=== PATIENT | female | born 1975 | race Hispanic/Latino ===

== ENCOUNTER 2019-04-03 23:23 | Observation (INO) | payer MEDICAID ==
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
[2019-04-04 00:20] LABS: BASO # 0.05 K/mm3 (0.0-2.0); BASO % 0.3 % (0.0-3.0); EOS # 0.1 (0.0-0.7); EOS % 0.3 % (1.5-5.0); HEMOGLOBIN 12.7 g/dL (12.0-16.0); LYMPH # 2.5 (1.2-3.4); LYMPH % 14.2 % (22.0-35.0); MEAN CORPUSCULAR HEMOGLOBIN 29.5 pg (25.0-35.0); MEAN CORPUSCULAR HGB CONC 32.7 g/dl (31.0-37.0); MEAN PLATELET VOLUME 9.8 fl (7.0-11.0); MONO # 0.9 (0.1-0.6); MONO % 4.9 % (1.0-6.0); RBC 4.31 10^6/uL (3.5-6.1); RED CELL DISTRIBUTION WIDTH 13.5 % (11.5-14.5); WHITE BLOOD COUNT 17.8 10^3/uL (4.5-11.0)
[2019-04-04 00:21] LABS: URINE BILIRUBIN NEGATIVE (NEGATIVE); URINE BLOOD NEGATIVE (NEGATIVE); URINE GLUCOSE (UA) NEGATIVE (NEGATIVE); URINE LEUKOCYTE ESTERASE NEGATIVE Leu/uL (NEGATIVE); URINE PROTEIN TRACE mg/dL (<30 mg/dL); URINE UROBILINOGEN 0.2 E.U./dL (<1 E.U./dL)
[2019-04-04 00:27] LABS: URINE APPEARANCE CLEAR (CLEAR); URINE COLOR LIGHT YELLOW (YELLOW)
[2019-04-04 00:33] LABS: ALB/GLOB RATIO 1.4 (1.1-1.8); ALBUMIN 4.4 g/dL (3.0-4.8); ALT/SGPT 30 U/L (7-56); AST/SGOT 38 U/L (14-36); BLOOD UREA NITROGEN 13 mg/dL (7-21); CALCIUM 8.8 mg/dL (8.4-10.5); GFR NON-AFRICAN AMERICAN > 60
[2019-04-04 00:39] LABS: HCG,QUALITATIVE URINE NEGATIVE (NEGATIVE); URINE BACTERIA FEW /hpf; URINE RBC 0 - 2 /hpf (0-2); URINE WBC 0 - 2 /hpf (0-6)
[2019-04-04] MEDS ORDERED: Sodium Chloride 0.9% 1,000 ML IV ONE (01:01)
[2019-04-04 01:09] LABS: BARBITURATES, UR NEGATIVE (NEGATIVE); BENZODIAZEPINES, UR NEGATIVE (NEGATIVE); OPIATES, UR NEGATIVE (NEGATIVE); PHENCYCLIDINE, UR NEGATIVE (NEGATIVE)
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
[2019-04-04] MEDS: Sodium Chloride 0.45% 1,000 ML IV SCH ×2 (04:16→18:36)
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
[2019-04-04] MEDS: Multivitamin With Minerals Tab PO SCH (10:24)
--- NOTE | 2019-04-04 10:27 | RAD ---
Date of service: 04/04/2019 PROCEDURE: Right Wrist Radiographs. HISTORY: wrist pain COMPARISON: None. TECHNIQUE: 4 views obtained. FINDINGS: BONES: Normal. No fracture. JOINTS: Normal. No dislocation. SOFT TISSUES: Normal. OTHER FINDINGS: None. IMPRESSION: Normal right wrist radiographs.
--- NOTE | 2019-04-04 10:28 | RAD ---
PROCEDURE: Right Hand Radiographs. HISTORY: hand pain COMPARISON: None. TECHNIQUE: 3 views obtained. FINDINGS: BONES: Normal. No fracture. JOINTS: Normal. No osteoarthritic changes. SOFT TISSUES: Normal. OTHER FINDINGS: None. IMPRESSION: Normal right hand radiographs.
[2019-04-04 12:04] LABS: BASO # 0.04 K/mm3 (0.0-2.0); BASO % 0.3 % (0.0-3.0); EOS # 0.1 (0.0-0.7); EOS % 0.6 % (1.5-5.0); HEMOGLOBIN 11.5 g/dL (12.0-16.0); LYMPH % 24.8 % (22.0-35.0); MEAN CELL VOLUME 89.3 fl (80.0-105.0); MEAN CORPUSCULAR HEMOGLOBIN 29.3 pg (25.0-35.0); MEAN CORPUSCULAR HGB CONC 32.9 g/dl (31.0-37.0); MEAN PLATELET VOLUME 9.8 fl (7.0-11.0); MONO # 0.9 (0.1-0.6); MONO % 7.1 % (1.0-6.0); RBC 3.92 10^6/uL (3.5-6.1); RED CELL DISTRIBUTION WIDTH 13.8 % (11.5-14.5); WHITE BLOOD COUNT 12.2 10^3/uL (4.5-11.0)
[2019-04-04 12:11] LABS: ALB/GLOB RATIO 1.4 (1.1-1.8); ALBUMIN 3.7 g/dL (3.0-4.8); ALT/SGPT 24 U/L (7-56); AST/SGOT 36 U/L (14-36); BLOOD UREA NITROGEN 16 mg/dL (7-21); GFR NON-AFRICAN AMERICAN > 60
--- NOTE | 2019-04-04 15:27 | CT ---
Date of service: 04/04/2019 PROCEDURE: CT HEAD WITHOUT CONTRAST. HISTORY: r/o head trauma COMPARISON: None available. TECHNIQUE: Axial computed tomography images were obtained through the head/brain without intravenous contrast. Radiation dose: Total exam DLP = 742.86 mGy-cm. This CT exam was performed using one or more of the following dose reduction techniques: Automated exposure control, adjustment of the mA and/or kV according to patient size, and/or use of iterative reconstruction technique. FINDINGS: HEMORRHAGE: No intracranial hemorrhage. BRAIN: No mass effect or edema. No atrophy or chronic microvascular ischemic changes. VENTRICLES: Unremarkable. No hydrocephalus. CALVARIUM: Unremarkable. PARANASAL SINUSES: Unremarkable as visualized. No significant inflammatory changes. MASTOID AIR CELLS: Unremarkable as visualized. No inflammatory changes. OTHER FINDINGS: None. IMPRESSION: Normal CT of the Head.
--- NOTE | 2019-04-04 15:33 | MRI ---
Date of service: 04/04/2019 PROCEDURE: MRI BRAIN WITHOUT CONTRAST HISTORY: possible seizure COMPARISON: None available. TECHNIQUE: Multiplanar, multisequence MR images of the brain were obtained without intravenous contrast enhancement. FINDINGS: HEMORRHAGE: None DWI: No evidence of an acute or early subacute infarction. BRAIN PARENCHYMA: No mass effect or edema. No atrophy or chronic microvascular ischemic changes. VENTRICLES: Unremarkable. No hydrocephalus. CRANIUM: Unremarkable. ORBITS: Grossly unremarkable. PARANASAL SINUSES/MASTOIDS: Clear VASCULAR SYSTEM: Skull base flow voids intact. OTHER FINDINGS: None. IMPRESSION: Unremarkable non contrast enhanced MRI of the brain.
--- NOTE | 2019-04-04 18:16 | CARD ---
APPROVED REPORT Date of service: 04/04/2019 EKG Measurement Heart [id number] <Conclusion> Normal sinus rhythm Normal ECG
[2019-04-05 06:43] LABS: BASO # 0.03 K/mm3 (0.0-2.0); BASO % 0.3 % (0.0-3.0); EOS # 0.2 (0.0-0.7); EOS % 1.8 % (1.5-5.0); HEMOGLOBIN 11.1 g/dL (12.0-16.0); LYMPH # 2.8 (1.2-3.4); LYMPH % 32.3 % (22.0-35.0); MEAN CELL VOLUME 89.6 fl (80.0-105.0); MEAN CORPUSCULAR HEMOGLOBIN 28.9 pg (25.0-35.0); MEAN CORPUSCULAR HGB CONC 32.3 g/dl (31.0-37.0); MEAN PLATELET VOLUME 10.1 fl (7.0-11.0); MONO # 0.5 (0.1-0.6); MONO % 6.1 % (1.0-6.0); RBC 3.84 10^6/uL (3.5-6.1); RED CELL DISTRIBUTION WIDTH 13.7 % (11.5-14.5); WHITE BLOOD COUNT 8.7 10^3/uL (4.5-11.0)
[2019-04-05 07:00] LABS: ALB/GLOB RATIO 1.3 (1.1-1.8); ALBUMIN 3.3 g/dL (3.0-4.8); ALT/SGPT 24 U/L (7-56); AST/SGOT 35 U/L (14-36); BLOOD UREA NITROGEN 18 mg/dL (7-21); CALCIUM 7.7 mg/dL (8.4-10.5); GFR NON-AFRICAN AMERICAN > 60
[2019-04-05] MEDS: Multivitamin With Minerals Tab PO SCH (10:36)
[2019-04-05] MEDS: Sodium Chloride 0.45% 1,000 ML IV SCH (10:38)
[2019-04-05 14:06] VITALS: RESP 20; O2SAT 98
--- NOTE | 2019-04-05 16:00 | PCM.EEG ---
Electroencephalogram Report - Electroencephalogram Report Procedure Date: 04/04/19 Medication: Folic acid. Ketorolac Interpretation: Technical Information: This was a 16 -channel EEG, 1-channel EKG routine EEG performed using an Crystal IS machine. Electrodes were applied using the 10/20 international placement system. Start; 13;02 End; ;47 Total 45 min. Clinical Information: seizures During resting wakefulness there was a symmetric posterior dominant rhythm at 8.5-9.5 Hz, 30-50 uV, which was reactive to eye opening and closing. Drowsiness (13;22) was associated with fragmentation of the posterior dominant rhythm and with slow roving eye movements. Light sleep (13;30)was recorded and was characterized by central vertex waves, sleep spindles, and bilateral theta slowing. Hyperventilation was t performed and there were no changes on the record. Photic stimulation was performed and there was symmetric bi occipital diving at different flash frequencies. Focal abnormality; none ECG was associated with a normal sinus rhythm. Impression: This is a normal awake drowsy and sleep electroencephalogram.
--- NOTE | 2019-04-05 17:29 | CP.PCM.DIS ---
<NenajuleeJodie - Last Filed: 04/05/19 17:22> Provider - Provider Date of Admission: 04/04/19 03:46 Attending physician: Demond Garcia MD Consults: 04/04/19 04:01 Neurology Consult Routine Comment: Consulting Provider: Bart Pittman Consulting Physician: Bart Pittman Reason for Consult: syncope, hx seizures 04/04/19 04:05 [employer] Cell [employer]r [Case Management Referral] Routine Comment: Physician Instructions: Reason For Exam: Reason for Referral: Discharge Planning Time Spent in preparation of Discharge (in minutes): 60 Hospital Course - Lab Results Lab Results: Most Recent Lab Values WBC 8.7 10^3/uL (4.5-11.0) D 04/05/19 06:30 RBC 3.84 10^6/uL (3.5-6.1) 04/05/19 06:30 Hgb 11.1 g/dL (12.0-16.0) L 04/05/19 06:30 Hct 34.4 % (36.0-48.0) L 04/05/19 06:30 MCV 89.6 fl (80.0-105.0) 04/05/19 06:30 MCH 28.9 pg (25.0-35.0) 04/05/19 06:30 MCHC 32.3 g/dl (31.0-37.0) 04/05/19 06:30 RDW 13.7 % (11.5-14.5) 04/05/19 06:30 Plt Count 223 10^3/uL (120.0-450.0) 04/05/19 06:30 MPV 10.1 fl (7.0-11.0) 04/05/19 06:30 Neut % (Auto) 59.5 % (50.0-68.0) 04/05/19 06:30 Lymph % (Auto) 32.3 % (22.0-35.0) 04/05/19 06:30 [place] % (Auto) 6.1 % (1.0-6.0) H 04/05/19 06:30 Eos % (Auto) 1.8 % (1.5-5.0) 04/05/19 06:30 Baso % (Auto) 0.3 % (0.0-3.0) 04/05/19 06:30 Lymph # (Auto) 2.8 (1.2-3.4) 04/05/19 06:30 [place] # (Auto) 0.5 (0.1-0.6) 04/05/19 06:30 Eos # (Auto) 0.2 (0.0-0.7) 04/05/19 06:30 Baso # (Auto) 0.03 K/mm3 (0.0-2.0) 04/05/19 06:30 Absolute Neuts (auto) 5.20 (1.4-6.5) 04/05/19 06:30 Sodium 139 mmol/L (132-148) 04/05/19 06:30 Potassium 3.6 mmol/L (3.6-5.0) 04/05/19 06:30 Chloride 108 mmol/L (98-107) H 04/05/19 06:30 Carbon Dioxide 24 mmol/L (21-33) 04/05/19 06:30 Anion Gap 11 (10-20) 04/05/19 06:30 BUN 18 mg/dL (7-21) 04/05/19 06:30 Creatinine 0.6 mg/dl (0.7-1.2) L 04/05/19 06:30 Est GFR ( Amer) > 60 04/05/19 06:30 Est GFR (Non-Af Amer) > 60 04/05/19 06:30 Random Glucose 91 mg/dL (70-110) 04/05/19 06:30 Calcium 7.7 mg/dL (8.4-10.5) L 04/05/19 06:30 Magnesium 1.7 mg/dL (1.7-2.2) 04/05/19 06:30 Total Bilirubin 0.4 mg/dL (0.2-1.3) 04/05/19 06:30 AST 35 U/L (14-36) 04/05/19 06:30 ALT 24 U/L (7-56) 04/05/19 06:30 Alkaline Phosphatase 41 U/L (38-126) 04/05/19 06:30 Total Protein 5.9 g/dL (5.8-8.3) 04/05/19 06:30 Albumin 3.3 g/dL (3.0-4.8) 04/05/19 06:30 Globulin 2.6 gm/dL 04/05/19 06:30 Albumin/Globulin Ratio 1.3 (1.1-1.8) 04/05/19 06:30 Urine Color Light yellow (YELLOW) 04/04/19 00:10 Urine Appearance Clear (CLEAR) 04/04/19 00:10 Urine pH 6.0 (4.7-8.0) 04/04/19 00:10 Ur Specific [place] 1.015 (1.005-1.035) 04/04/19 00:10 Urine Protein Trace mg/dL (<30 mg/dL) H 04/04/19 00:10 Urine Glucose (UA) Negative mg/dL (NEGATIVE) 04/04/19 00:10 Urine Ketones Negative mg/dL (NEGATIVE) 04/04/19 00:10 Urine Blood Negative (NEGATIVE) 04/04/19 00:10 Urine Nitrate Negative (NEGATIVE) 04/04/19 00:10 Urine Bilirubin Negative (NEGATIVE) 04/04/19 00:10 Urine Urobilinogen 0.2 E.U./dL (<1 E.U./dL) 04/04/19 00:10 Ur Leukocyte Esterase Negative Ran/uL (NEGATIVE) 04/04/19 00:10 Urine RBC 0 - 2 /hpf (0-2) 04/04/19 00:10 Urine WBC 0 - 2 /hpf (0-6) 04/04/19 00:10 Ur Epithelial Cells 3 - 4 /hpf (0-5) 04/04/19 00:10 Urine Bacteria Few /hpf (NONE) 04/04/19 00:10 Urine HCG, Qual Negative (NEGATIVE) 04/04/19 00:10 Urine Opiates Screen Negative (NEGATIVE) 04/04/19 00:10 Urine Methadone Screen Negative (NEGATIVE) 04/04/19 00:10 Ur Barbiturates Screen Negative (NEGATIVE) 04/04/19 00:10 Ur Phencyclidine Scrn Negative (NEGATIVE) 04/04/19 00:10 Ur Amphetamines Screen Negative (NEGATIVE) 04/04/19 00:10 U Benzodiazepines Scrn Negative (NEGATIVE) 04/04/19 00:10 U Oth Cocaine Metabols Negative (NEGATIVE) 04/04/19 00:10 U Cannabinoids Screen Negative (NEGATIVE) 04/04/19 00:10 - Hospital Course Hospital Course: Jodie Henriquez, PGY-1, Internal Medicine Discharge Summary for Dr. Garcia 43 year old female with past medical history of seizures presented status post likely syncopal episode. She last remembered walking from a bar to home. She regained consciousness in the emergency department. After being given narcan, patient was more awake and alert. UDS was negative on admission. Patient reported having enough alcohol for a twelve pack of beer. Patient's last seizure was 4 years ago and is noncompliant with medication because she did not like the way they made her feel. Upon admission, patient had no other symptoms. Upon admission, wrist X ray and hand X ray were unremarkable for fractures. Head CT and Brain MRI were unremarkable for acute intracranial hemorrhage or abnormalities. Neurology was unsure if patient had seizure or syncope so EEG was ordered. EEG showed normal awake drowsy and sleep EEG. As a result, patient was found to be stable and ready for discharge. Patient was told to follow up with PCP within 3-5 days. Patient was told to take all home medications as prescribed. Patient was told to abstain from alcohol and tobacco use. Patient was told to return to the emergency department if she had any new or concerning symptoms. This is a brief summary of the events that transpired during this hospital admission. For more information, please refer to hospital documentation Discharge Diagnoses Syncope vs. Seizure - Date & Time of H&P Date of H&P: 04/04/19 Time of H&P: 03:31 Discharge Exam - Head Exam Head Exam: ATRAUMATIC, NORMAL INSPECTION, NORMOCEPHALIC - Eye Exam Eye Exam: EOMI, PERRL - Respiratory Exam Respiratory Exam: Clear to PA & Lateral, NORMAL BREATHING PATTERN. absent: Rales, Rhonchi, Wheezes - Cardiovascular Exam Cardiovascular Exam: REGULAR RHYTHM, RRR, +S1, +S2. absent: Clicks, Gallop, Rubs - GI/Abdominal Exam GI & Abdominal Exam: Normal Bowel Sounds, Soft. absent: Distended, Firm, Guarding, Tenderness - Extremities Exam Extremities exam: full ROM, normal capillary refill, normal inspection - Neurological Exam Neurological exam: Alert, CN II-XII Intact, Normal Gait, Oriented x3 - Psychiatric Exam Psychiatric exam: Normal Affect, Normal Mood - Skin Skin Exam: Dry, Intact, Normal Color Discharge Plan - Discharge Medications Prescriptions: Folic Acid 1 mg PO DAILY 30 Days #30 tab Multimineral/Multivitamin [Therapeutic-M Tab] 1 tab PO 0800 30 Days #30 tab Mupirocin 2% Ointment [Bactroban Ointment] 1 gm TOP BID #1 tube Thiamine [Vitamin B1 Tab] 50 mg PO DAILY 30 Days #30 tab - Follow Up Plan Condition: FAIR Disposition: HOME/ ROUTINE Instructions: Syncope (DC) Additional Instructions: Please follow up with primary care doctor within 3-5 days. Please take all home medications as prescribed. Please abstain from alcohol use and tobacco use. 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5 % (50.0-68.0) 04/05/19 06:30 Lymph % (Auto) 32.3 % (22.0-35.0) 04/05/19 06:30 [place] % (Auto) 6.1 % (1.0-6.0) H 04/05/19 06:30 Eos % (Auto) 1.8 % (1.5-5.0) 04/05/19 06:30 Baso % (Auto) 0.3 % (0.0-3.0) 04/05/19 06:30 Lymph # (Auto) 2.8 (1.2-3.4) 04/05/19 06:30 [place] # (Auto) 0.5 (0.1-0.6) 04/05/19 06:30 Eos # (Auto) 0.2 (0.0-0.7) 04/05/19 06:30 Baso # (Auto) 0.03 K/mm3 (0.0-2.0) 04/05/19 06:30 Absolute Neuts (auto) 5.20 (1.4-6.5) 04/05/19 06:30 Sodium 139 mmol/L (132-148) 04/05/19 06:30 Potassium 3.6 mmol/L (3.6-5.0) 04/05/19 06:30 Chloride 108 mmol/L (98-107) H 04/05/19 06:30 Carbon Dioxide 24 mmol/L (21-33) 04/05/19 06:30 Anion Gap 11 (10-20) 04/05/19 06:30 BUN 18 mg/dL (7-21) 04/05/19 06:30 Creatinine 0.6 mg/dl (0.7-1.2) L 04/05/19 06:30 Est GFR ( Amer) > 60 04/05/19 06:30 Est GFR (Non-Af Amer) > 60 04/05/19 06:30 Random Glucose 91 mg/dL (70-110) 04/05/19 06:30 Calcium 7.7 mg/dL (8.4-10.5) L 04/05/19 06:30 Magnesium 1.7 mg/dL (1.7-2.2) 04/05/19 06:30 Total Bilirubin 0.4 mg/dL (0.2-1.3) 04/05/19 06:30 AST 35 U/L (14-36) 04/05/19 06:30 ALT 24 U/L (7-56) 04/05/19 06:30 Alkaline Phosphatase 41 U/L (38-126) 04/05/19 06:30 Total Protein 5.9 g/dL (5.8-8.3) 04/05/19 06:30 Albumin 3.3 g/dL (3.0-4.8) 04/05/19 06:30 Globulin 2.6 gm/dL 04/05/19 06:30 Albumin/Globulin Ratio 1.3 (1.1-1.8) 04/05/19 06:30 Urine Color Light yellow (YELLOW) 04/04/19 00:10 Urine Appearance Clear (CLEAR) 04/04/19 00:10 Urine pH 6.0 (4.7-8.0) 04/04/19 00:10 Ur Specific [place] 1.015 (1.005-1.035) 04/04/19 00:10 Urine Protein Trace mg/dL (<30 mg/dL) H 04/04/19 00:10 Urine Glucose (UA) Negative mg/dL (NEGATIVE) 04/04/19 00:10 Urine Ketones Negative mg/dL (NEGATIVE) 04/04/19 00:10 Urine Blood Negative (NEGATIVE) 04/04/19 00:10 Urine Nitrate Negative (NEGATIVE) 04/04/19 00:10 Urine Bilirubin Negative (NEGATIVE) 04/04/19 00:10 Urine Urobilinogen 0.2 E.U./dL (<1 E.U./dL) 04/04/19 00:10 Ur Leukocyte Esterase Negative Ran/uL (NEGATIVE) 04/04/19 00:10 Urine RBC 0 - 2 /hpf (0-2) 04/04/19 00:10 Urine WBC 0 - 2 /hpf (0-6) 04/04/19 00:10 Ur Epithelial Cells 3 - 4 /hpf (0-5) 04/04/19 00:10 Urine Bacteria Few /hpf (NONE) 04/04/19 00:10 Urine HCG, Qual Negative (NEGATIVE) 04/04/19 00:10 Urine Opiates Screen Negative (NEGATIVE) 04/04/19 00:10 Urine Methadone Screen Negative (NEGATIVE) 04/04/19 00:10 Ur Barbiturates Screen Negative (NEGATIVE) 04/04/19 00:10 Ur Phencyclidine Scrn Negative (NEGATIVE) 04/04/19 00:10 Ur Amphetamines Screen Negative (NEGATIVE) 04/04/19 00:10 U Benzodiazepines Scrn Negative (NEGATIVE) 04/04/19 00:10 U Oth Cocaine Metabols Negative (NEGATIVE) 04/04/19 00:10 U Cannabinoids Screen Negative (NEGATIVE) 04/04/19 00:10 Attending/Attestation - Attestation I have personally seen and examined this patient.: Yes I have fully participated in the care of the patient.: Yes I have reviewed all pertinent clinical information, including history, physical exam and plan: Yes Notes (Text): 04/05/19 17:40 43 year old female with past medical history of seizure (not on any medications due to noncompliance) and alcohol abuse who presented after possible syncopal episode she reports after coming home from drinking. Imaging were negative for fracture. CT head and MRI brain were negative for acute findings. EEG was negative as well. She was seen by neurology with no further recommendations. She had leukocytosis initially, likely reactive, which resolved. Patient is discharged home to follow up with pmd. Counselled on alcohol abstinence in front of who was also present at bedside. Demond Garcia MD Hospitalist.
[2019-04-05 17:35] VITALS: BP 115/72; PULSE 66; TEMP 98.1
[2019-04-05] MEDS ORDERED: Mupirocin 2% Ointment 15 GM TUBE TOP SCH (18:00)
== END 2019-04-05 17:57 | disposition home or self-care (01) ==
LOC: ED 23:23 → ERH 04-04 03:46 → 2RNO 04-04 04:36
PROVIDERS: ADMIT Internal Medicine; ATTEND Internal Medicine
DX: R55 Syncope and collapse (principal); R56.9 Unspecified convulsions; Z91.14 Patient's other noncompliance with medication regimen; Z91.19 Patient's noncompliance with other medical treatment and regimen; F17.210 Nicotine dependence, cigarettes, uncomplicated; Z88.8 Allergy status to other drugs, medicaments and biological substances
CPT/HCPCS: 36415; 70450; 70551; 73110; 73130; 80053; 80324; 80345; 80346; 80349; 80353; 80358; 80361; 81001; 81025; 83735; 83992; 84703; 85025; 93005; 96360; 99285; G0378; J7030